=== PATIENT | male | born 1985 | race Caucasian/White ===

== ENCOUNTER → 2016-09-07 | Outpatient (CLI) | payer MEDICAID ==
[~2016-09-07] MED LIST: AMLODIPINE5 MG PO; CENTRUM CHEWAB1 EACH PO; DIOVAN80 MG PO; FAMOTIDINE20 MG PO; GABAPENTIN100 MG PO; LEVEMIR100 U/M1 SC; PHARMAC PO; SILDENAFIL PO; TYLENOL 325MG325 MG PO; VITAMIN B-12500 MC2 PO; VITAMIN B12-FO1 EACH PO; VITAMIN D10000 UNIT PO; [UNRECOGNIZED DRUG - OTHER] PO
== END ==
LOC: LAB 10:45
DX: K90.89 Other intestinal malabsorption (principal); I10 Essential (primary) hypertension; E11.9 Type 2 diabetes mellitus without complications; G44.009 Cluster headache syndrome, unspecified, not intractable

== ENCOUNTER → 2016-10-12 | Outpatient (CLI) | payer MEDICAID | LOC: CARDREHAB 09:04 | DX: R06.00 Dyspnea, unspecified (principal); R00.2 Palpitations; K90.89 Other intestinal malabsorption | CPT/HCPCS: A9500 ==

== ENCOUNTER → 2017-04-01 | Outpatient (CLI) | payer MEDICAID ==
[2015-03-23 00:26] VITALS: BP 139/83
== END ==
LOC: RAD 12:16
DX: R51 Headache (principal); R41.0 Disorientation, unspecified; R47.81 Slurred speech; R53.1 Weakness

== ENCOUNTER → 2017-04-19 | Outpatient (CLI) | payer MEDICAID ==
[2015-03-23 00:26] VITALS: BP 139/83
== END ==
LOC: LAB 09:47
DX: E11.9 Type 2 diabetes mellitus without complications (principal); I10 Essential (primary) hypertension; G44.009 Cluster headache syndrome, unspecified, not intractable; K90.89 Other intestinal malabsorption

== ENCOUNTER → 2017-09-05 | Outpatient (CLI) | payer MEDICAID ==
[2015-03-23 00:26] VITALS: BP 139/83
== END ==
LOC: RAD 11:38
DX: M79.642 Pain in left hand (principal); M25.532 Pain in left wrist; Z88.5 Allergy status to narcotic agent; Z88.0 Allergy status to penicillin; Z88.2 Allergy status to sulfonamides; Z88.8 Allergy status to other drugs, medicaments and biological substances; Z88.1 Allergy status to other antibiotic agents; Z91.041 Radiographic dye allergy status

== ENCOUNTER → 2017-10-18 | Outpatient (CLI) | payer MEDICAID ==
[2015-03-23 00:26] VITALS: BP 139/83
[2017-10-18 10:40] LABS: EOS # 0.2 (0.04-0.40); EOS % 3.5 % (0.0-4.0); HEMATOCRIT 44.3 % (42.0-52.0); HEMOGLOBIN 14.8 g/dL (13.5-18.0); LYMPH# 1.6 (1.50-4.00); MEAN CELL VOLUME 87 fl (78-100); MEAN CORPUSCULAR HEMOGLOBIN 29 pg (27-31); MEAN CORPUSCULAR HGB CONC 33 g/dL (33-37); MONO # 0.6 (0.20-0.80); NEU # 3.4 (1.40-6.50); PLATELET COUNT 252 K/mm3 (130-400); RED BLOOD COUNT 5.12 M/mm3 (4.20-5.60); RED CELL DISTRIBUTION WIDTH 13.5 % (11.5-14.5); WHITE BLOOD COUNT 5.8 K/mm3 (4.8-10.8)
[2017-10-18 10:59] LABS: ALBUMIN 4.2 g/dL (3.5-5.0); BUN/CREATININE RATIO 22.5 (6.0-26.0); CALCIUM 9.3 mg/dL (8.4-10.2); TOTAL BILIRUBIN 0.4 mg/dL (0.2-1.3); TOTAL PROTEIN 7.8 g/dL (6.3-8.2)
[2017-10-18 12:04] LABS: ERYTHROCYTE SEDIMENTATION RATE 3 mm/hr (0-15)
== END ==
LOC: LAB 10:27
PROVIDERS: Internal Medicine
DX: E11.9 Type 2 diabetes mellitus without complications (principal); G56.00 Carpal tunnel syndrome, unspecified upper limb; K91.1 Postgastric surgery syndromes; G40.802 Other epilepsy, not intractable, without status epilepticus; K90.89 Other intestinal malabsorption; Z88.5 Allergy status to narcotic agent; Z88.0 Allergy status to penicillin; Z88.2 Allergy status to sulfonamides; Z88.8 Allergy status to other drugs, medicaments and biological substances; Z88.6 Allergy status to analgesic agent; Z91.041 Radiographic dye allergy status; Z91.040 Latex allergy status

== ENCOUNTER → 2018-05-16 | Outpatient (CLI) | payer MEDICAID ==
[2015-03-23 00:26] VITALS: BP 139/83
[2018-05-16 15:34] LABS: EOS # 0.2 (0.04-0.40); EOS % 2.4 % (0.0-4.0); HEMATOCRIT 45.9 % (42.0-52.0); HEMOGLOBIN 15.4 g/dL (13.5-18.0); LYMPH# 1.6 (1.50-4.00); MEAN CELL VOLUME 87 fl (78-100); MEAN CORPUSCULAR HEMOGLOBIN 29 pg (27-31); MEAN CORPUSCULAR HGB CONC 34 g/dL (33-37); MEAN PLATELET VOLUME 10.1 fl (7.4-10.4); MONO # 0.5 (0.20-0.80); NEU # 4.3 (1.40-6.50); PLATELET COUNT 278 K/mm3 (130-400); RED BLOOD COUNT 5.29 M/mm3 (4.20-5.60); RED CELL DISTRIBUTION WIDTH 12.9 % (11.5-14.5); WHITE BLOOD COUNT 6.6 K/mm3 (4.8-10.8)
[2018-05-16 15:52] LABS: ALBUMIN 4.5 g/dL (3.5-5.0); CALCIUM 9.2 mg/dL (8.4-10.2); POTASSIUM 4.2 mmol/L (3.6-5.0); TOTAL BILIRUBIN 0.6 mg/dL (0.2-1.3); TOTAL PROTEIN 7.5 g/dL (6.3-8.2)
== END ==
LOC: LAB 15:20
PROVIDERS: Internal Medicine
DX: E11.9 Type 2 diabetes mellitus without complications (principal); I10 Essential (primary) hypertension

== ENCOUNTER → 2018-08-18 | Outpatient (CLI) | payer MEDICAID ==
[2015-03-23 00:26] VITALS: BP 139/83
[2018-08-18 11:28] LABS: EOS # 0.1 (0.04-0.40); HEMATOCRIT 44.1 % (42.0-52.0); HEMOGLOBIN 14.5 g/dL (13.5-18.0); LYMPH# 1.5 (1.50-4.00); MEAN CELL VOLUME 88 fl (78-100); MEAN CORPUSCULAR HEMOGLOBIN 29 pg (27-31); MEAN CORPUSCULAR HGB CONC 33 g/dL (33-37); MEAN PLATELET VOLUME 10.3 fl (7.4-10.4); MONO # 0.7 (0.20-0.80); NEU # 4.2 (1.40-6.50); PLATELET COUNT 260 K/mm3 (130-400); RED BLOOD COUNT 5.04 M/mm3 (4.20-5.60); RED CELL DISTRIBUTION WIDTH 13.1 % (11.5-14.5); WHITE BLOOD COUNT 6.5 K/mm3 (4.8-10.8)
[2018-08-18 11:56] LABS: ALBUMIN 4.5 g/dL (3.5-5.0); CALCIUM 9.3 mg/dL (8.4-10.2); POTASSIUM 4.2 mmol/L (3.6-5.0); TOTAL BILIRUBIN 0.7 mg/dL (0.2-1.3); TOTAL PROTEIN 7.5 g/dL (6.3-8.2)
== END ==
LOC: LAB 11:11
PROVIDERS: Internal Medicine
DX: E11.9 Type 2 diabetes mellitus without complications (principal); I10 Essential (primary) hypertension; K90.9 Intestinal malabsorption, unspecified

== ENCOUNTER → 2018-11-17 | Outpatient (CLI) | payer MEDICAID ==
[2015-03-23 00:26] VITALS: BP 139/83
[2018-11-17 12:29] LABS: EOS # 0.1 (0.04-0.40); EOS % 1.8 % (0.0-4.0); HEMATOCRIT 45.2 % (42.0-52.0); HEMOGLOBIN 14.9 g/dL (13.5-18.0); LYMPH# 1.4 (1.50-4.00); MEAN CELL VOLUME 87 fl (78-100); MEAN CORPUSCULAR HEMOGLOBIN 29 pg (27-31); MEAN CORPUSCULAR HGB CONC 33 g/dL (33-37); MEAN PLATELET VOLUME 10.2 fl (7.4-10.4); MONO # 0.5 (0.20-0.80); NEU # 3.5 (1.40-6.50); PLATELET COUNT 272 K/mm3 (130-400); RED BLOOD COUNT 5.19 M/mm3 (4.20-5.60); RED CELL DISTRIBUTION WIDTH 13.1 % (11.5-14.5); WHITE BLOOD COUNT 5.5 K/mm3 (4.8-10.8)
[2018-11-17 14:21] LABS: ALBUMIN 4.6 g/dL (3.5-5.0); CALCIUM 9.5 mg/dL (8.4-10.2); POTASSIUM 4.5 mmol/L (3.6-5.0); TOTAL BILIRUBIN 0.5 mg/dL (0.2-1.3); TOTAL PROTEIN 7.8 g/dL (6.3-8.2)
== END ==
LOC: LAB 12:13
PROVIDERS: Internal Medicine
DX: E11.9 Type 2 diabetes mellitus without complications (principal); I10 Essential (primary) hypertension; G40.909 Epilepsy, unspecified, not intractable, without status epilepticus

== ENCOUNTER → 2019-12-18 | Outpatient (CLI) | payer MEDICAID ==
[2015-03-23 00:26] VITALS: BP 139/83
[2019-12-18 09:54] LABS: EOS # 0.2 (0.04-0.40); HEMATOCRIT 44.3 % (42.0-52.0); HEMOGLOBIN 14.8 g/dL (13.5-18.0); LYMPH# 1.4 (1.50-4.00); MEAN CELL VOLUME 86 fl (78-100); MEAN CORPUSCULAR HEMOGLOBIN 29 pg (27-31); MEAN CORPUSCULAR HGB CONC 33 g/dL (33-37); MEAN PLATELET VOLUME 9.7 fl (7.4-10.4); MONO # 0.5 (0.20-0.80); NEU # 2.9 (1.40-6.50); PLATELET COUNT 234 K/mm3 (130-400); RED BLOOD COUNT 5.13 M/mm3 (4.20-5.60); WHITE BLOOD COUNT 4.9 K/mm3 (4.8-10.8)
[2019-12-18 09:59] LABS: ALBUMIN 4.3 g/dL (3.5-5.0)
[2019-12-18 10:00] LABS: POTASSIUM 4.1 mmol/L (3.5-5.1)
[2019-12-18 10:01] LABS: CALCIUM 9.5 mg/dL (8.3-10.5)
[2019-12-18 10:04] LABS: TOTAL BILIRUBIN 0.6 mg/dL (0.2-1.2)
== END ==
LOC: LAB 09:37
PROVIDERS: Internal Medicine
DX: I10 Essential (primary) hypertension (principal); E11.9 Type 2 diabetes mellitus without complications; K90.9 Intestinal malabsorption, unspecified; G44.009 Cluster headache syndrome, unspecified, not intractable

== ENCOUNTER → 2020-03-10 | Outpatient (CLI) | payer MEDICAID ==
[2015-03-23 00:26] VITALS: BP 139/83
== END ==
LOC: LAB 11:30
DX: K90.9 Intestinal malabsorption, unspecified (principal); I10 Essential (primary) hypertension; E11.9 Type 2 diabetes mellitus without complications; G44.009 Cluster headache syndrome, unspecified, not intractable

== ENCOUNTER → 2020-05-09 | Outpatient (CLI) | payer MEDICAID ==
[2015-03-23 00:26] VITALS: BP 139/83
== END ==
LOC: LAB 11:54
DX: J02.9 Acute pharyngitis, unspecified (principal); R09.81 Nasal congestion; Z20.828 Contact with and (suspected) exposure to other viral communicable diseases

== ENCOUNTER → 2020-12-12 | Outpatient (CLI) | payer MEDICAID ==
[2015-03-23 00:26] VITALS: BP 139/83
[2020-12-12 12:05] LABS: BASO # 0.04 (0.02-0.10); EOS # 0.09 (0.04-0.40); EOS % 1.6 % (0.0-4.0); HEMATOCRIT 45.5 % (42.0-52.0); HEMOGLOBIN 15.1 g/dL (13.5-18.0); LYMPH# 1.42 (1.50-4.00); MEAN CELL VOLUME 86 fl (78-100); MEAN CORPUSCULAR HEMOGLOBIN 29 pg (27-31); MEAN CORPUSCULAR HGB CONC 33 g/dL (33-37); MONO # 0.44 (0.20-0.80); NEU # 3.79 (1.40-6.50); PLATELET COUNT 261 K/mm3 (130-400); RED BLOOD COUNT 5.29 M/mm3 (4.20-5.60); RED CELL DISTRIBUTION WIDTH 12.3 % (11.5-14.5); WHITE BLOOD COUNT 5.8 K/mm3 (4.8-10.8)
[2020-12-12 12:46] LABS: URINE APPEARANCE HAZY; URINE BILIRUBIN NEGATIVE (NEGATIVE); URINE BLOOD NEGATIVE (NEGATIVE); URINE COLOR YELLOW; URINE GLUCOSE NEGATIVE (NEGATIVE); URINE KETONE NEGATIVE (NEGATIVE); URINE LEUKOCYTE ESTERASE NEGATIVE (NEGATIVE); URINE NITRATE NEGATIVE (NEGATIVE); URINE PROTEIN(semi-quant) NEGATIVE (NEGATIVE); URINE UROBILINOGEN NORMAL (NORMAL); URINE WBC 0 /hpf (0-3)
[2020-12-12 12:48] LABS: ALBUMIN 4.3 g/dL (3.5-5.0)
[2020-12-12 12:51] LABS: TOTAL PROTEIN 7.1 g/dL (6.4-8.3)
[2020-12-12 12:53] LABS: TOTAL BILIRUBIN 0.4 mg/dL (0.2-1.2)
[2020-12-12 23:45] LABS: PTH,INTACT 88.8 pg/mL (6.6-88.9)
[2020-12-13] LABS: FOLATE (FOLIC ACID) 12.7 ng/mL (2.0-20.0)
== END ==
LOC: LAB 10:15 → AMSURD 10:15
PROVIDERS: Internal Medicine
DX: R00.0 Tachycardia, unspecified (principal)

== ENCOUNTER → 2021-08-03 | Outpatient (CLI) | payer MEDICAID ==
[2021-08-03 09:54] LABS: BASO # 0.04 K/mm3 (0.02-0.10); EOS # 0.22 K/mm3 (0.04-0.40); EOS % 3.7 % (0.0-4.0); HEMATOCRIT 44.2 % (42.0-52.0); HEMOGLOBIN 14.7 g/dL (13.5-18.0); LYMPH# 1.75 K/mm3 (1.50-4.00); MEAN CELL VOLUME 86 fl (78-100); MEAN CORPUSCULAR HEMOGLOBIN 29 pg (27-31); MEAN CORPUSCULAR HGB CONC 33 g/dL (33-37); MEAN PLATELET VOLUME 9.9 fl (7.4-10.4); MONO # 0.62 K/mm3 (0.20-0.80); NEU # 3.33 K/mm3 (1.40-6.50); PLATELET COUNT 236 K/mm3 (130-400); RED BLOOD COUNT 5.13 M/mm3 (4.20-5.60); RED CELL DISTRIBUTION WIDTH 12.7 % (11.5-14.5)
[2021-08-03 10:02] LABS: ALBUMIN 4.3 g/dL (3.5-5.0); POTASSIUM 3.9 mmol/L (3.5-5.1)
[2021-08-03 10:03] LABS: CALCIUM 9.7 mg/dL (8.3-10.5)
[2021-08-03 10:05] LABS: TOTAL PROTEIN 7.5 g/dL (6.4-8.3)
[2021-08-03 10:06] LABS: TOTAL BILIRUBIN 0.5 mg/dL (0.2-1.2)
== END ==
LOC: LAB 09:37
PROVIDERS: Internal Medicine
DX: E11.9 Type 2 diabetes mellitus without complications (principal); K90.9 Intestinal malabsorption, unspecified

== ENCOUNTER → 2021-11-01 | Outpatient (CLI) | payer MEDICAID | LOC: RAD 16:51 | DX: S69.92XA Unspecified injury of left wrist, hand and finger(s), initial encounter (principal); Y93.67 Activity, basketball ==

== ENCOUNTER → 2022-04-16 | Outpatient (CLI) | payer MEDICAID ==
[2022-04-16 10:20] LABS: BASO # 0.03 K/mm3 (0.02-0.10); EOS # 0.18 K/mm3 (0.04-0.40); EOS % 2.8 % (0.0-4.0); HEMATOCRIT 44.2 % (42.0-52.0); HEMOGLOBIN 14.7 g/dL (13.5-18.0); LYMPH# 1.25 K/mm3 (1.50-4.00); MEAN CELL VOLUME 87 fl (78-100); MEAN CORPUSCULAR HEMOGLOBIN 29 pg (27-31); MEAN CORPUSCULAR HGB CONC 33 g/dL (33-37); MEAN PLATELET VOLUME 9.9 fl (7.4-10.4); MONO # 0.58 K/mm3 (0.20-0.80); NEU # 4.32 K/mm3 (1.40-6.50); PLATELET COUNT 274 K/mm3 (130-400); RED BLOOD COUNT 5.09 M/mm3 (4.20-5.60); RED CELL DISTRIBUTION WIDTH 12.8 % (11.5-14.5); WHITE BLOOD COUNT 6.4 K/mm3 (4.8-10.8)
[2022-04-16 10:27] LABS: ALBUMIN 4.4 g/dL (3.5-5.0); POTASSIUM 4.3 mmol/L (3.5-5.1)
[2022-04-16 10:29] LABS: CALCIUM 9.5 mg/dL (8.3-10.5)
[2022-04-16 10:30] LABS: TOTAL PROTEIN 7.4 g/dL (6.4-8.3)
[2022-04-16 10:59] LABS: URINE APPEARANCE CLEAR; URINE BILIRUBIN NEGATIVE (NEGATIVE); URINE BLOOD NEGATIVE (NEGATIVE); URINE COLOR YELLOW; URINE GLUCOSE NEGATIVE (NEGATIVE); URINE KETONE NEGATIVE (NEGATIVE); URINE LEUKOCYTE ESTERASE NEGATIVE (NEGATIVE); URINE NITRATE NEGATIVE (NEGATIVE); URINE PROTEIN(semi-quant) NEGATIVE (NEGATIVE); URINE UROBILINOGEN NORMAL (NORMAL); URINE WBC 0-1 /hpf (0-3)
[2022-04-16 11:21] LABS: TOTAL BILIRUBIN 0.5 mg/dL (0.2-1.2)
== END ==
LOC: LAB 09:59
PROVIDERS: Internal Medicine
DX: G40.909 Epilepsy, unspecified, not intractable, without status epilepticus (principal); M51.35 Other intervertebral disc degeneration, thoracolumbar region; K91.1 Postgastric surgery syndromes; K90.9 Intestinal malabsorption, unspecified; E55.9 Vitamin D deficiency, unspecified; E11.9 Type 2 diabetes mellitus without complications

== ENCOUNTER → 2022-10-09 | Outpatient (CLI) | payer MEDICAID | LOC: RAD 09:06 | DX: M50.121 Cervical disc disorder at C4-C5 level with radiculopathy (principal); G56.22 Lesion of ulnar nerve, left upper limb; G56.02 Carpal tunnel syndrome, left upper limb; R20.2 Paresthesia of skin; M48.02 Spinal stenosis, cervical region ==

== ENCOUNTER → 2023-07-08 | Outpatient (CLI) | payer MEDICAID | LOC: RAD 10:31 | DX: M79.642 Pain in left hand (principal) ==

== ENCOUNTER → 2023-08-06 | Outpatient (CLI) | payer MEDICAID | LOC: RAD 10:23 | DX: M79.645 Pain in left finger(s) (principal) ==

== ENCOUNTER → 2024-02-24 | Outpatient (CLI) | payer MEDICAID ==
[2024-02-24 09:03] LABS: URINE WBC 0 /hpf (0-3)
[2024-02-24 09:13] LABS: BASO # 0.03 K/mm3 (0.02-0.10); EOS # 0.23 K/mm3 (0.04-0.40); EOS % 3.3 % (0.0-4.0); HEMATOCRIT 43.5 % (42.0-52.0); HEMOGLOBIN 14.4 g/dL (13.5-18.0); LYMPH# 1.83 K/mm3 (1.50-4.00); MEAN CELL VOLUME 88 fl (78-100); MEAN CORPUSCULAR HEMOGLOBIN 29 pg (27-31); MEAN CORPUSCULAR HGB CONC 33 g/dL (33-37); MEAN PLATELET VOLUME 9.6 fl (7.4-10.4); MONO # 0.61 K/mm3 (0.20-0.80); NEU # 4.16 K/mm3 (1.40-6.50); PLATELET COUNT 263 K/mm3 (130-400); RED BLOOD COUNT 4.95 M/mm3 (4.20-5.60); RED CELL DISTRIBUTION WIDTH 12.5 % (11.5-14.5); WHITE BLOOD COUNT 6.9 K/mm3 (4.8-10.8)
[2024-02-24 09:22] LABS: ALBUMIN 4.2 g/dL (3.5-5.0)
[2024-02-24 09:23] LABS: CALCIUM 9.6 mg/dL (8.3-10.5)
[2024-02-24 09:26] LABS: TOTAL BILIRUBIN 0.6 mg/dL (0.2-1.2)
[2024-02-24 09:31] LABS: MAGNESIUM 2.15 mg/dL (1.60-2.60)
[2024-02-24 09:33] LABS: PH-URINE 5.5 (5.0 - 8.0); URINE APPEARANCE CLEAR (CLEAR); URINE BILIRUBIN NEGATIVE (NEGATIVE); URINE BLOOD NEGATIVE (NEGATIVE); URINE COLOR YELLOW (YELLOW); URINE GLUCOSE NEGATIVE (NEGATIVE); URINE KETONE NEGATIVE (NEGATIVE); URINE NITRATE NEGATIVE (NEGATIVE); URINE PROTEIN(semi-quant) NEGATIVE (NEGATIVE)
[2024-02-24 09:34] LABS: URINE LEUKOCYTE ESTERASE NEGATIVE (NEGATIVE); URINE MUCUS PRESENT (NOT PRESENT)
[2024-02-24 23:18] LABS: CREATININE OTHER SOURCE 145 mg/dL (47-110)
== END ==
LOC: LAB 08:58
PROVIDERS: Internal Medicine
DX: Z12.5 Encounter for screening for malignant neoplasm of prostate (principal); E11.9 Type 2 diabetes mellitus without complications; I10 Essential (primary) hypertension; E78.2 Mixed hyperlipidemia